=== PATIENT | male | born 1960 | race Caucasian/White ===

== ENCOUNTER 2023-07-24 09:55 | Inpatient (IN) ==
[~2023-07-24 09:55] MED LIST: Naloxone 0.4 mg VIAL 0.4 mg/ml 1 ml VIAL IV PRN; Ondansetron 4 mg VIAL 2 MG/ML 2 ml VIAL IV PRN; fentaNYL 100 mcg/2 ml 50 MCG/ML VIAL IV PRN
[2023-07-24 11:02] LABS: Rapid COVID-19 Molecular Detected (Undetected)
[2023-07-24] MEDS ORDERED: Lidocaine 4% TOPICAL 50 ML TOP.SOLN ONE (11:08)
[2023-07-24] MEDS ORDERED: Lidocaine 2% JELLY 10 ML JELLY ONE (11:08)
[2023-07-24] MEDS ORDERED: Benzocaine/Butamben/Tetracain (CETACAINE - SINGLE USE) 5 gm TOPICAL ONE (11:09)
[2023-07-24] MEDS: Lactated Ringers 1000 ml BAG 1,000 ML IV SCH (11:15)
[2023-07-24] MEDS ORDERED: Lidocaine 1% w EPI 1:100,000 MDV 20 ML VIAL ONE (11:43)
[2023-07-24] MEDS ORDERED: Oxymetazoline 0.05% NASAL SPR 15 ML BTL ONE (11:54)
[2023-07-24] MEDS ORDERED: Glycopyrrolate IV 0.2 MG/ML 1 ML VIAL ONE (11:58)
[2023-07-24] MEDS ORDERED: Dexmedetomidine 200 mcg/2 ml 2 ml VIAL (200 mcg) ONE (11:58)
[2023-07-24] MEDS ORDERED: fentaNYL 100 mcg/2 ml 50 MCG/ML VIAL ONE (11:58)
[2023-07-24] MEDS ORDERED: Midazolam 2 mg/2 ml VIAL 1 mg/ml 2 ml VIAL (2 mg) ONE (11:58)
[2023-07-24] MEDS ORDERED: Propofol 10 MG/ML 20 ML BTL ONE (11:58)
[2023-07-24] MEDS ORDERED: Lidocaine 2% PF 5 ML VIAL ONE (11:59)
[2023-07-24] MEDS ORDERED: KETAMINE HCL 10 MG/ML 20 ml VIAL (200 MG) ONE (12:18)
[2023-07-24] MEDS ORDERED: Rocuronium 50 mg VIAL 10 mg/ml 5 ml VIAL (50 mg) ONE ×2 (13:01→13:59)
[2023-07-24] MEDS ORDERED: HYDROmorphone 0.5 MG/0.5 ML SYRINGE ONE (14:06)
[2023-07-24] MEDS ORDERED: Fluticasone NASAL SPRAY 50MCG 16 gm SPRAY BTL INTRANASAL PRN (15:32)
[2023-07-24] MEDS ORDERED: Albuterol HFA INHALER 8 gm MDI INH PRN (15:32)
[2023-07-24] MEDS: GUAIFENESIN 1200 MG PO SCH (16:15)
[2023-07-24] MEDS ORDERED: Naloxone Nasal Spray 4 MG/0.1 ML NASAL.SPR INTRANASAL PRN (16:37)
[2023-07-24] MEDS: Morphine 2 MG/ML SYRINGE IV PRN (17:06)
[2023-07-24] MEDS: Chlorhexidine MOUTHWASH 0.12% 15 ML UDC TOPICAL SCH (17:06)
[2023-07-24] MEDS: Morphine 4 MG/ML VIAL (1 ml) IV PRN (18:10)
[2023-07-24] MEDS: FLUTICAS/UMECLI/VILANT 200-62.5-25 MDI (NF) INH SCH (18:25)
[2023-07-24] MEDS: Buffered Lidocaine 1% SYRIN 1 ml INTRADERM ONE (18:27)
[2023-07-24] MEDS: Famotidine IV 10 MG/ML 2 ml VIAL (20 mg) IV SLOW PU SCH (20:41)
[2023-07-25 05:45] LABS: ABS Monocytes 0.6 10^3/uL (0.0-1.1); ABS Neutrophils 8.4 10^3/uL (1.5-7.6); Eosinophil % 0.1 %; Hematocrit 29.5 % (38-53); Lymphocyte % 9.7 %; Mean Corpuscular Hgb Conc 34.1 g/dL (31-36); Mean Corpuscular Volume 91.1 fL (80-97); Mean Platelet Volume 7.1 fL (7.5-11.2); Platelet Count 438 10^3/uL (150-450); Red Blood Count 3.23 10^6/uL (4.06-5.63); Red Cell Distribution Width 16.2 % (12-17)
[2023-07-25 06:20] LABS: ALT 13 U/L (7-52); Albumin 2.9 g/dL (3.2-5.2); Albumin/Globulin Ratio 0.9 (1-3); Alkaline Phosphatase 63 U/L (35-149); Anion Gap 7 mmol/L (2-16); Blood Urea Nitrogen 10 mg/dL (6-24); CO2 Carbon Dioxide 28 mmol/L (22-32); Calcium 8.5 mg/dL (8.6-10.3); Chloride 98 mmol/L (101-111); Creatinine, Serum 0.51 mg/dL (0.67-1.17); Globulin 3.2 g/dL (2-4); Glucose 98 mg/dL (70-100); Sodium 133 mmol/L (135-145); Total Bilirubin 0.7 mg/dL (0.2-1.0); Total Protein 6.1 g/dL (6.4-8.9); eGFR CKD-EPI 113.9 (>60)
[2023-07-25] MEDS: CMCS:Roflumilast 500 mcg TAB (NF) PO SCH (07:12)
[2023-07-25 07:25] LABS: Phosphorus 4.2 mg/dL (2.5-5.0); Potassium Redraw 4.3 mmol/L (3.5-5.0)
[2023-07-25] MEDS: Morphine 2 MG/ML SYRINGE IV ONE (08:50)
[2023-07-25] MEDS: NS 0.9% IV SCH (10:02)
[2023-07-25] MEDS: METHYLPREDNISOLONE SOD IV SCH (10:02)
[2023-07-25] MEDS: Piperacillin/Tazobac 3.375 BAG 3.375 GM/100 ML BAG IV ONE (12:53)
[2023-07-25] MEDS ORDERED: Zosyn per Pharmacy NOTE FOLLOW UP SCH (13:00)
[2023-07-25] MEDS: PTO:BUDESONIDE/GLYCOPYR/FORMOTEROL MDI (NF) INH SCH (15:50)
[2023-07-25] MEDS: Lactated Ringers 1000 ml BAG 1,000 ML IV ONE (16:06)
[2023-07-25] MEDS: ZOSYN 3.375 GM Q8H per EXTENDED INFUSION IV SCH (17:10)
[2023-07-26 05:02] LABS: ABS Lymphocytes 0.7 10^3/uL (1.0-4.8); ABS Monocytes 0.8 10^3/uL (0.0-1.1); ABS Nucleated RBC 0.01 10^3/ul; Eosinophil % 0.2 %; Hemoglobin 9.6 g/dL (13.2-16.3); Lymphocyte % 4.6 %; Mean Corpuscular Hemoglobin 30.9 pg (27-33); Mean Corpuscular Hgb Conc 33.3 g/dL (31-36); Mean Corpuscular Volume 92.7 fL (80-97); Nucleated Red Blood Cells % 0.1 %/100WBC (0.0-0.8); Platelet Count 462 10^3/uL (150-450); Red Blood Count 3.13 10^6/uL (4.06-5.63); Red Cell Distribution Width 16.2 % (12-17); White Blood Count 15.6 10^3/uL (3.6-10.2)
[2023-07-26 05:36] LABS: Creatinine, Serum 0.54 mg/dL (0.67-1.17); Magnesium 1.8 mg/dL (1.9-2.7); Potassium 3.8 mmol/L (3.5-5.0)
[2023-07-26] MEDS: Magnesium Sulfate 2 gm BAG 2 GM/50 ML BAG IVPB ONE (06:30)
[2023-07-26] MEDS ORDERED: KCL 20 MEQ/100 ML IVPREMIX 20 MEQ/100 ML BAG IV ONE (07:16)
[2023-07-26] MEDS: Acetaminophen IV 1 GM/100ML 1,000 MG/100 ML BAG IV PRN (07:49)
[2023-07-26] MEDS: D5W 1/2 NS KCl 20 meq 1000 ml 1,000 ML IV SCH (07:52)
[2023-07-26] MEDS ORDERED: D5W 1000 ml BAG 1,000 ML IV SCH (08:00)
[2023-07-26] MEDS: Albuterol/Ipratropium NEB.SOL (2.5/0.5 MG) 3 ML NEB.SOLN INH PRN (08:02)
[2023-07-26] MEDS: methylPREDNISolone SOD SUCC 40 mg/ml 1 ml VIAL ONE ×2 (08:35→08:36)
[2023-07-27 04:11] LABS: ABS Basophils 0.1 10^3/uL (0.0-0.1); ABS Eosinophils 0.1 10^3/uL (0.0-0.5); ABS Lymphocytes 0.7 10^3/uL (1.0-4.8); ABS Monocytes 0.8 10^3/uL (0.0-1.1); ABS Neutrophils 9.9 10^3/uL (1.5-7.6); Eosinophil % 0.4 %; Hematocrit 27.6 % (38-53); Hemoglobin 9.4 g/dL (13.2-16.3); Lymphocyte % 5.9 %; Mean Corpuscular Hemoglobin 30.9 pg (27-33); Mean Corpuscular Volume 90.9 fL (80-97); Mean Platelet Volume 6.8 fL (7.5-11.2); Platelet Count 436 10^3/uL (150-450); Red Blood Count 3.04 10^6/uL (4.06-5.63); Red Cell Distribution Width 16.3 % (12-17); White Blood Count 11.6 10^3/uL (3.6-10.2)
[2023-07-27 04:59] LABS: Calcium 8.2 mg/dL (8.6-10.3); Creatinine, Serum 0.39 mg/dL (0.67-1.17); Magnesium 2.1 mg/dL (1.9-2.7); Potassium 3.6 mmol/L (3.5-5.0); eGFR CKD-EPI 123.5 (>60)
[2023-07-28 05:49] LABS: Hematocrit 30.7 % (38-53); Hemoglobin 10.2 g/dL (13.2-16.3); Mean Corpuscular Hemoglobin 30.4 pg (27-33); Mean Corpuscular Hgb Conc 33.3 g/dL (31-36); Mean Corpuscular Volume 91.2 fL (80-97); Platelet Count 510 10^3/uL (150-450); Red Blood Count 3.37 10^6/uL (4.06-5.63); Red Cell Distribution Width 16.3 % (12-17); White Blood Count 9.9 10^3/uL (3.6-10.2)
[2023-07-28 06:16] LABS: Calcium 8.7 mg/dL (8.6-10.3); Creatinine, Serum 0.44 mg/dL (0.67-1.17); Magnesium 2.1 mg/dL (1.9-2.7); Potassium 3.6 mmol/L (3.5-5.0); eGFR CKD-EPI 119.1 (>60)
[2023-07-28 07:11] LABS: ABS Eosinophils 0.1 10^3/uL (0.0-0.5); ABS Lymphocytes 1.4 10^3/uL (1.0-4.8); ABS Monocytes 0.9 10^3/uL (0.0-1.1); ABS Neutrophils 7.5 10^3/uL (1.5-7.6); ABS Nucleated RBC 0.01 10^3/ul; Eosinophil % 0.8 %; Lymphocyte % 14.5 %; Nucleated Red Blood Cells % 0.1 %/100WBC (0.0-0.8)
[2023-07-28] MEDS: NS 0.9% w/ 20 Meq KCL 1000 ml 1,000 ML IV SCH (09:13)
[2023-07-28] MEDS: Enoxaparin 40 MG/0.4 ML SYR SUBCUT SCH (09:18)
[2023-07-28] MEDS: D5LR 20 MEQ KCL 1000 ml BAG 1,000 ML IV SCH (09:31)
[2023-07-28] MEDS: Magnesium Hydroxide LIQ 30 ML UDC PO PRN (18:56)
[2023-07-29 08:26] LABS: Hematocrit 26.9 % (38-53); Hemoglobin 8.9 g/dL (13.2-16.3); Mean Corpuscular Hemoglobin 30.4 pg (27-33); Mean Corpuscular Hgb Conc 33.1 g/dL (31-36); Platelet Count 466 10^3/uL (150-450); Red Blood Count 2.93 10^6/uL (4.06-5.63); Red Cell Distribution Width 16.3 % (12-17); White Blood Count 8.1 10^3/uL (3.6-10.2)
[2023-07-29 08:42] LABS: Calcium 8.3 mg/dL (8.6-10.3); Creatinine, Serum 0.48 mg/dL (0.67-1.17); Potassium 4.1 mmol/L (3.5-5.0)
[2023-07-29 09:01] LABS: ABS Lymphocytes 1.3 10^3/uL (1.0-4.8); ABS Monocytes 0.7 10^3/uL (0.0-1.1); ABS Nucleated RBC 0.01 10^3/ul; Eosinophil % 0.6 %; Lymphocyte % 16.1 %; Nucleated Red Blood Cells % 0.1 %/100WBC (0.0-0.8); RBC Morphology Normal (Normal)
[2023-07-30 08:27] LABS: Hemoglobin 9.5 g/dL (13.2-16.3); Mean Corpuscular Hgb Conc 33.9 g/dL (31-36); Mean Corpuscular Volume 91.4 fL (80-97); Mean Platelet Volume 6.9 fL (7.5-11.2); Platelet Count 456 10^3/uL (150-450); Red Blood Count 3.06 10^6/uL (4.06-5.63); White Blood Count 9.3 10^3/uL (3.6-10.2)
[2023-07-30 09:06] LABS: Calcium 8.5 mg/dL (8.6-10.3); Creatinine, Serum 0.42 mg/dL (0.67-1.17); Potassium 3.6 mmol/L (3.5-5.0); eGFR CKD-EPI 120.8 (>60)
[2023-07-30 09:35] LABS: ABS Eosinophils 0.1 10^3/uL (0.0-0.5); ABS Lymphocytes 1.3 10^3/uL (1.0-4.8); ABS Monocytes 0.9 10^3/uL (0.0-1.1); ABS Nucleated RBC 0.01 10^3/ul; Eosinophil % 0.6 %; Lymphocyte % 14.3 %; Nucleated Red Blood Cells % 0.1 %/100WBC (0.0-0.8)
[2023-07-30 09:36] LABS: RBC Morphology Normal (Normal)
[2023-07-31 06:02] VITALS: BP 127/88
== END 2023-07-31 11:50 | disposition home health service (06) | DRG 90 ==
LOC: ICU 09:55 → OR 09:55 → SUATTDRO 14:43 → OBSVTOIN 14:54 → SSU 07-27 19:30
PROVIDERS: ADMIT Otolaryngology; ATTEND Student in an Organized Health Care Education/Training Program

== ENCOUNTER 2023-12-02 09:04 | Observation (INO) ==
[2023-12-02 10:05] LABS: INR 0.96 (0.85-1.14)
[2023-12-02 10:09] LABS: ABS Basophils 0.1 10^3/uL (0.0-0.1); ABS Lymphocytes 0.1 10^3/uL (1.0-4.8); ABS Monocytes 1.1 10^3/uL (0.0-1.1); ABS Neutrophils 13.9 10^3/uL (1.5-7.6); Hematocrit 44.8 % (38-53); Hemoglobin 14.7 g/dL (13.2-16.3); Lymphocyte % 0.9 %; Mean Corpuscular Hemoglobin 31.2 pg (27-33); Mean Corpuscular Hgb Conc 32.8 g/dL (31-36); Mean Corpuscular Volume 95.1 fL (80-97); Mean Platelet Volume 6.9 fL (7.5-11.2); Platelet Count 422 10^3/uL (150-450); Red Blood Count 4.71 10^6/uL (4.06-5.63); Red Cell Distribution Width 16.7 % (12-17); White Blood Count 15.3 10^3/uL (3.6-10.2)
[2023-12-02] MEDS: Albuterol/Ipratropium NEB.SOL (2.5/0.5 MG) 3 ML NEB.SOLN INH ONE (10:34)
[2023-12-02 10:43] LABS: Albumin 4.1 g/dL (3.2-5.2); Albumin/Globulin Ratio 1.2 (1-3); Calcium 9.7 mg/dL (8.6-10.3); Creatinine, Serum 0.61 mg/dL (0.67-1.17); Globulin 3.3 g/dL (2-4); Potassium 4.4 mmol/L (3.5-5.0); Total Bilirubin 1.3 mg/dL (0.2-1.0); Total Protein 7.4 g/dL (6.4-8.9); eGFR CKD-EPI 107.9 (>60)
[2023-12-02] MEDS: Lactated Ringers 1000 ml BAG 1,000 ML IV ONE (11:17)
[2023-12-02 11:29] LABS: Urine Appearance Clear; Urine Bilirubin Negative (Negative); Urine Blood Trace (Negative); Urine Color Light-Yellow; Urine Glucose Negative (Negative); Urine Ketones Negative (Negative); Urine Nitrite Negative (Negative); Urine Protein Negative (Negative); Urine Specific Gravity 1.012 (1.002-1.030); Urine Urobilinogen Negative (Negative)
[2023-12-02 11:41] LABS: High Sensitivity Troponin 1 Hr 7 pg/mL (<20)
[2023-12-02] MEDS: Iohexol 350 (CONTRAST) 500 ML MDV IV ONE (12:44)
[2023-12-02] MEDS: Acetaminophen IV 1 GM/100ML 1,000 MG/100 ML BAG IV ONE (13:32)
[2023-12-02] MEDS: Morphine 4 MG/ML VIAL (1 ml) IV ONE (14:25)
[2023-12-02] MEDS: Piperacillin/Tazobac 3.375 BAG 3.375 GM/100 ML BAG IV ONE (14:26)
[2023-12-02] MEDS: Vancomycin 1,000 MG in NS 0.9% 250 ml 250 ML IVPB ONE (15:14)
[2023-12-02] MEDS ORDERED: Vancomycin per Pharmacy 1 EA NOTE FOLLOW UP SCH (16:00)
[2023-12-02] MEDS ORDERED: Zosyn per Pharmacy NOTE FOLLOW UP SCH (16:00)
[2023-12-02] MEDS ORDERED: ZOSYN 3.375 GM Q8H per EXTENDED INFUSION IV SCH (18:30)
[2023-12-02] MEDS: ZOSYN 3.375 GM Q8H per EXTENDED INFUSION IV SCH (18:32)
[2023-12-02] MEDS ORDERED: Morphine 4 MG/ML VIAL (1 ml) IV PRN (19:54)
[2023-12-02] MEDS: Morphine 4 MG/ML VIAL (1 ml) IV PRN (20:34)
[2023-12-02] MEDS: Enoxaparin 40 MG/0.4 ML SYR SUBCUT SCH (20:37)
[2023-12-02] MEDS ORDERED: Vancomycin 750 MG in NS 0.9% 250 ML IVPB SCH (22:00)
[2023-12-02] MEDS: PTO: Albuterol HFA INHALER 8 gm MDI INH PRN (22:31)
[2023-12-03] MEDS: Vancomycin 750 MG in NS 0.9% 250 ML IVPB SCH (00:08)
[2023-12-03] MEDS: Benzocaine/Menthol LOZ PO PRN (00:08)
[2023-12-03] MEDS: Morphine 4 MG/ML VIAL (1 ml) IV PRN (01:19)
[2023-12-03 06:06] LABS: Hematocrit 40.4 % (38-53); Hemoglobin 13.4 g/dL (13.2-16.3); Mean Corpuscular Hemoglobin 31.7 pg (27-33); Mean Corpuscular Hgb Conc 33.2 g/dL (31-36); Mean Corpuscular Volume 95.6 fL (80-97); Mean Platelet Volume 7.1 fL (7.5-11.2); Platelet Count 373 10^3/uL (150-450); Red Blood Count 4.23 10^6/uL (4.06-5.63); Red Cell Distribution Width 16.5 % (12-17); White Blood Count 13.2 10^3/uL (3.6-10.2)
[2023-12-03 06:21] LABS: Albumin 3.6 g/dL (3.2-5.2); Albumin/Globulin Ratio 1.2 (1-3); Calcium 8.8 mg/dL (8.6-10.3); Creatinine, Serum 0.61 mg/dL (0.67-1.17); Globulin 2.9 g/dL (2-4); Magnesium 1.7 mg/dL (1.9-2.7); Potassium 3.7 mmol/L (3.5-5.0); Total Bilirubin 1.9 mg/dL (0.2-1.0); Total Protein 6.5 g/dL (6.4-8.9); eGFR CKD-EPI 107.9 (>60)
[2023-12-03 07:30] LABS: ABS Basophils 0.1 10^3/uL (0.0-0.1); ABS Eosinophils 0.1 10^3/uL (0.0-0.5); ABS Lymphocytes 0.3 10^3/uL (1.0-4.8); ABS Neutrophils 11.8 10^3/uL (1.5-7.6); Eosinophil % 0.4 %; Lymphocyte % 2.3 %; RBC Morphology Normal (Normal)
[2023-12-03] MEDS: Albuterol/Ipratropium NEB.SOL (2.5/0.5 MG) 3 ML NEB.SOLN INH PRN (07:54)
[2023-12-03] MEDS: Polyethylene Glycol 3350 17 GM PACKET PO PRN (08:17)
[2023-12-03] MEDS: Magnesium Sulfate 2 gm BAG 2 GM/50 ML BAG IVPB ONE (11:16)
[2023-12-03] MEDS: Magnesium Sulfate IV 1GM/100ML 1 GM/100 ML BAG IV ONE (13:13)
[2023-12-03 14:38] LABS: Creatinine, Serum 0.71 mg/dL (0.67-1.17); Vancomycin Trough 11.4 mcg/mL; eGFR CKD-EPI 103.1 (>60)
[2023-12-03] MEDS: Vancomycin Trough Check NOTE FOLLOW UP ONE (14:45)
[2023-12-04 06:58] LABS: Hematocrit 36.3 % (38-53); Mean Corpuscular Hemoglobin 31.5 pg (27-33); Mean Corpuscular Volume 95.4 fL (80-97); Mean Platelet Volume 6.8 fL (7.5-11.2); Platelet Count 344 10^3/uL (150-450); Red Cell Distribution Width 16.5 % (12-17); White Blood Count 9.5 10^3/uL (3.6-10.2)
[2023-12-04 07:30] LABS: Albumin 3.2 g/dL (3.2-5.2); Albumin/Globulin Ratio 1.2 (1-3); Calcium 8.8 mg/dL (8.6-10.3); Creatinine, Serum 0.62 mg/dL (0.67-1.17); Globulin 2.6 g/dL (2-4); Magnesium 2.2 mg/dL (1.9-2.7); Potassium 3.8 mmol/L (3.5-5.0); Total Bilirubin 0.9 mg/dL (0.2-1.0); Total Protein 5.8 g/dL (6.4-8.9); eGFR CKD-EPI 107.4 (>60)
[2023-12-04 08:24] LABS: ABS Eosinophils 0.1 10^3/uL (0.0-0.5); ABS Lymphocytes 0.2 10^3/uL (1.0-4.8); ABS Monocytes 0.7 10^3/uL (0.0-1.1); ABS Neutrophils 8.5 10^3/uL (1.5-7.6); Eosinophil % 1.1 %; Lymphocyte % 2.5 %; RBC Morphology Normal (Normal)
[2023-12-04 10:05] VITALS: BP 111/77
== END 2023-12-04 12:20 | disposition home or self-care (01) ==
LOC: ED 09:04 → EDHOLD 09:04 → MED 17:02
PROVIDERS: ADMIT Student in an Organized Health Care Education/Training Program; ATTEND Student in an Organized Health Care Education/Training Program